=== PATIENT | female | born 1980 | race Caucasian/White ===

== ENCOUNTER 2017-04-16 11:46 | Observation (INO) | payer OTHER ==
[~2017-04-16] VITALS: Ht 170.2 cm; Wt 115.6 kg
[2017-04-16 12:49] LABS: AMNISURE NEGATIVE (NEGATIVE)
[2017-04-16 12:50] LABS: AMNI OBC PASS
== END 2017-04-16 13:39 | disposition home or self-care (01) ==
LOC: LDOP 11:46 → LDIP 13:36
PROVIDERS: ADMIT Obstetrics & Gynecology Gynecology; ATTEND Obstetrics & Gynecology Gynecology
DX: O40.3XX0 Polyhydramnios, third trimester, not applicable or unspecified (principal); O21.2 Late vomiting of pregnancy; O26.893 Other specified pregnancy related conditions, third trimester; R19.7 Diarrhea, unspecified; Z3A.37 37 weeks gestation of pregnancy
CPT/HCPCS: 59025; 84112; 89060; G0378; 99211; G0463; Q0114

== ENCOUNTER 2017-05-31 08:08 | Inpatient (IN) | payer OTHER ==
[~2017-05-31] VITALS: Ht 177.8 cm; Wt 125.0 kg
[2017-05-31] MEDS ORDERED: OXYTOCIN 30U/ 0.9% NaCL 500ML 500 ML IV ONE (08:28)
[2017-05-31] MEDS ORDERED: D5%-LACTATED RINGERS 1,000 ML IV SCH (08:28)
[2017-05-31] MEDS ORDERED: FENTANYL PF 100 MCG/2ML IVPush PRN (08:30)
[2017-05-31 08:44] VITALS: BP 115/66
[2017-05-31] MEDS ORDERED: PLEASE ENTER ALLERGIES MC SCH ×2 (09:00)
[2017-05-31 09:28] LABS: HEMOGLOBIN 12.9 g/dL (11.7-16.4); WHITE BLOOD COUNT 6.8 x10^3/uL (3.4-10)
[2017-05-31] MEDS ORDERED: LIDOCAINE 1%, 20ML ONE (09:37)
[2017-05-31] MEDS ORDERED: OXYTOCIN 30U/ 0.9% NaCL 500ML 500 ML ONE (09:38)
[2017-05-31] MEDS ORDERED: OXYTOCIN 30U/ 0.9% NaCL 500ML 500 ML IV PRN (10:03)
[2017-05-31] MEDS: LACTATED RINGERS 1,000 ML IV SCH ×2 (13:02→14:42)
[2017-05-31] MEDS ORDERED: FENTANYL/BUPIV./NS/PF 250 ML EPIDCONT ONE (14:18)
[2017-05-31] MEDS ORDERED: FENTANYL PF 100 MCG/2ML ONE (14:18)
[2017-05-31] MEDS ORDERED: BUPIVACAINE/PF 0.25% ONE (14:18)
[2017-05-31] MEDS ORDERED: LIDOCAINE/PF 1.5%-EPI 1:200K, 30ML ONE (14:20)
[2017-05-31] MEDS ORDERED: NEWBORN KIT ONE (16:25)
[2017-05-31] MEDS ORDERED: FENTANYL/BUPIV./NS/PF 250 ML EPIDCONT SCH (17:34)
[2017-05-31] MEDS ORDERED: LACTATED RINGERS 1,000 ML IV SCH (17:34)
[2017-05-31] MEDS ORDERED: ONDANSETRON 2MG/ML, 2ML IVPush PRN (18:00)
[2017-05-31] MEDS ORDERED: LACTATED RINGERS 1,000 ML IVBOLUS PRN (18:00)
[2017-05-31] MEDS ORDERED: EPHEDRINE 50 MG/ML, 1ML IVPush PRN (18:00)
[2017-05-31] MEDS: OXYTOCIN 30U/ 0.9% NaCL 500ML 500 ML IV SCH (19:50)
[2017-05-31] MEDS ORDERED: RHOGAM FROM BLOOD BANK 1 NOTE EA IM/IV ONE (20:00)
[2017-05-31] MEDS ORDERED: CALCIUM CARBONATE 500 MG TAB.CHEW PO PRN (20:00)
[2017-05-31] MEDS ORDERED: ONDANSETRON 2MG/ML, 2ML IV PRN (20:00)
[2017-05-31] MEDS ORDERED: MISOPROSTOL 200 MCG TABLET PR PRN (20:00)
[2017-05-31] MEDS ORDERED: MAGNESIUM HYDROXIDE 8%, 30ML UDC PO PRN (20:00)
[2017-05-31] MEDS ORDERED: DIPH,PERTUSS(ACELL),TET VAC/PF NC IM-VACC PRN (20:00)
[2017-05-31] MEDS ORDERED: MEASLES,MUMPS&RUBELLA VACC/PF 0.5 ML SQ PRN (20:00)
[2017-05-31] MEDS ORDERED: OXYcodone/APAP 5/325MG TABLET PO PRN (20:00)
[2017-05-31] MEDS ORDERED: OXYcodone IR 5MG TABLET PO PRN (20:00)
[2017-05-31 20:47] VITALS: BP 127/69
[2017-05-31 22:10] VITALS: BP 103/55
[2017-06-01 01:59] VITALS: BP 106/61
[2017-06-01 04:40] LABS: HEMATOCRIT 34.7 % (34.6-47.8); HEMOGLOBIN 11.8 g/dL (11.7-16.4); WHITE BLOOD COUNT 9.5 x10^3/uL (3.4-10)
[2017-06-01] MEDS: IBUPROFEN 600 MG TABLET PO PRN ×3 (04:55→17:46)
[2017-06-01] MEDS: OXYTOCIN 30U/ 0.9% NaCL 500ML 500 ML IV SCH ×2 (05:50→15:50)
[2017-06-01 08:30] VITALS: BP 116/66
[2017-06-01] MEDS: DOCUSATE 100 MG CAPSULE PO PRN (11:31)
[2017-06-01] MEDS: PRENATAL VIT/IRON/FA 1 EACH TABLET PO SCH (11:32)
[2017-06-01 12:10] VITALS: BP 107/66
[2017-06-01 19:55] VITALS: BP 102/57
[2017-06-02 00:03] VITALS: BP 105/61
[2017-06-02] MEDS: OXYTOCIN 30U/ 0.9% NaCL 500ML 500 ML IV SCH ×2 (01:50→11:50)
[2017-06-02 07:15] VITALS: BP 110/69
[2017-06-02] MEDS: DOCUSATE 100 MG CAPSULE PO PRN (08:38)
[2017-06-02] MEDS: IBUPROFEN 600 MG TABLET PO PRN (08:38)
[2017-06-02] MEDS: PRENATAL VIT/IRON/FA 1 EACH TABLET PO SCH (08:38)
[2017-06-02] MEDS ORDERED: IBUP-1222 PO (10:22)
[2017-06-02] MEDS ORDERED: OXYC-302 PO (10:22)
== END 2017-06-02 15:00 | disposition home or self-care (01) | DRG 775 ==
LOC: LDIP 08:08 → 2NW 21:42
PROVIDERS: ADMIT Obstetrics & Gynecology Gynecology; ATTEND Obstetrics & Gynecology Gynecology
PROC: 10E0XZZ Delivery of Products of Conception, External Approach (ICD-10-PCS; principal; 2017-05-31)
PROC: 3E033VJ Introduction of Other Hormone into Peripheral Vein, Percutaneous Approach (ICD-10-PCS; 2017-05-31)
PROC: 3E0S3CZ (ICD-10-PCS; 2017-05-31)
PROC: 00HU33Z Insertion of Infusion Device into Spinal Canal, Percutaneous Approach (ICD-10-PCS; 2017-05-31)
DX: O09.523 Supervision of elderly multigravida, third trimester (principal); O99.214 Obesity complicating childbirth; O66.0 Obstructed labor due to shoulder dystocia; E66.9 Obesity, unspecified; Z68.39 Body mass index [BMI] 39.0-39.9, adult; Z3A.39 39 weeks gestation of pregnancy; Z37.0 Single live birth
CPT/HCPCS: 36415; 82803; 85025; 86850; 86900; J3490; J2590; J3010; J7120; J7121